=== PATIENT | female | born 1980 ===

== ENCOUNTER 2021-07-19 13:45 | Emergency (ER) | payer SELFPAY ==
[2021-07-19 19:09] LABS: SARS-CoV-2 PCR by NAA DETECTED (NotDetected)
== END 2021-07-19 15:25 | disposition home or self-care (01) ==
LOC: ERS 13:45
DX: U07.1 COVID-19 (principal); E11.9 Type 2 diabetes mellitus without complications
CPT/HCPCS: 99283; U0003; U0005